=== PATIENT | female | born 1980 | race African-American/Black ===

== ENCOUNTER 2017-10-10 07:47 | Emergency (ER) | payer OTHER ==
[2017-10-10] MEDS: CYCLOBENZAPRINE 10 MG TABLET. PO (08:34)
[2017-10-10] MEDS: IBUPROFEN 800 MG TABLET. PO (08:34)
== END 2017-10-10 09:02 | disposition home or self-care (01) ==
LOC: ER 07:47
DX: M54.6 Pain in thoracic spine (principal)
CPT/HCPCS: 99283

== ENCOUNTER 2017-11-23 14:40 | Emergency (ER) | payer OTHER ==
[2017-11-23 15:50] LABS: INFLUENZA A PATIENT NEGATIVE (NEGATIVE); INFLUENZA B PATIENT NEGATIVE (NEGATIVE); OBC FLU VALID
[2017-11-24 10:20] LABS: NEGATIVE OBC STREP NEG; POSITIVE OBC STREP POS
== END 2017-11-23 16:34 | disposition home or self-care (01) ==
LOC: ER 14:40
DX: J06.9 Acute upper respiratory infection, unspecified (principal)
CPT/HCPCS: 87070; 87804; 87804-59; 87880; 99284